=== PATIENT | male | born 1955 | race Caucasian/White ===

== ENCOUNTER 2018-05-25 16:33 | Emergency (ER) | payer OTHER ==
[2018-05-25] MEDS ORDERED: LORazepam 2 MG/ML INJ IVP ONE (17:02)
[2018-05-25 17:17] LABS: PLATELET COUNT 195 10^3/uL (150-400)
--- NOTE | 2018-05-25 17:18 | EDPHY ---
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 He took an [id number] supplement at 3:00 p.m.. Approximately 30 min later , he began to feel tremulous. Initially the tremors were generalized and now seem to be only in his lower extremities. No associated symptoms. No chest pain, shortness of breath, vomiting or headache. No prior similar symptoms. REVIEW OF SYSTEMS: complete 10 point ROS reviewed and is negative except for the noted elements in the HPI - Medical/Surgical History Hx Asthma: No Hx Chronic Respiratory Disease: No Hx Diabetes: No Hx Cardiac Disease: Yes Hx Renal Disease: No Hx Cirrhosis: No Hx Alcoholism: No Hx HIV/AIDS: No Hx Splenectomy or Spleen Trauma: No Other PMH: mi, hyperlipidemia, L eye surg, hernia repair x 2, orif R femur, orif L ankle - Social History Smoking Status: Former smoker Alcohol Use: Sober Drug Use: None Additional Social History: - Physical Exam Exam: General Appearance: Alert, pleasant Eyes: Pupils equal and round, no conjunctival pallor or injection ENT, Mouth: Mucous membranes moist Neck: Normal inspection Respiratory: Lungs are clear to auscultation Cardiovascular: Regular rate and rhythm Gastrointestinal: Abdomen is soft and nontender Neurological: A&O, motor 5/5, sensory intact to light touch, intermittent bilateral shaking of the lower extremities Skin: Warm and dry Extremities: Nontender, no pedal edema Psychiatric: Mood and affect normal Constitutional: Initial Vital Signs Temperature (C) 36.6 C 05/25/18 16:41 Heart Rate 90 05/25/18 16:41 Respiratory Rate 18 05/25/18 16:41 Blood Pressure 193/99 H 05/25/18 16:41 O2 Sat (%) 96 05/25/18 16:41 O2 Delivery Mode Room Air Allergies/Adverse Reactions: doxycycline Allergy (Verified 05/25/18 16:46) Home Medications: Medication Instructions Recorded Ambien 05/25/18 Atorvastatin Calcium 05/25/18 Cialis 05/25/18 Magnesium 05/25/18 Medical Decision Making - Diagnostics EKG Interpretation: EKG interpreted by me reveals normal sinus rhythm, rate 70, RBBB, LAFB, no ST or T segment changes. Interpretation: Abnormal EKG ED Course/Re-evaluation: This patient presents with tremulousness after taking an [id number] supplement. Ativan 0.5 mg IV x2 given with complete relief in symptoms. Will observe. 5:45 p.m.-feels much better, no tremors. Will continue to observe. 18 30: Remains asymptomatic, able to walk with a steady gait, will discharge home. Patient advised not to take over the counter supplements without his doctor's advice. Differential Diagnosis: Differential diagnosis includes though is not limited to seizure, hypoglycemia, electrolyte abnormality, muscular spasm. - Data Points Laboratory Results: Laboratory Results 05/25/18 17:08 05/25/18 17:08 Medications Given: Discontinued Medications Lorazepam (Ativan Injection) 1 mg IVP EDNOW ONE Stop: 05/25/18 17:03 Last Admin: 05/25/18 17:07 Dose: 1 mg Lorazepam (Ativan 1 Mg Prepack#4) 1 btl TAKEHOME EDNOW ONE Stop: 05/25/18 18:30 Last Admin: 05/25/18 18:38 Dose: 1 btl Departure - Departure Disposition: Home, Routine, Self-Care Clinical Impression: Adverse reaction to [id number] medication Qualifiers: Encounter type: initial encounter Qualified Code(s): T50.905A - Adverse effect of unspecified drugs, medicaments and biological substances, initial encounter Condition: Good Instructions: Additional Information, Lorazepam (By mouth) Additional Instructions: Ativan 1 tablet orally every 12 hr as needed for tremors. Referrals: Jaime Li MD [Medical Doctor] - As per Instructions
[2018-05-25] MEDS ORDERED: LORAZEPAM 1 MG PREPACK#4 BTL TAKEHOME ONE (18:29)
[2018-05-25 18:38] VITALS: BP 135/77
--- NOTE | 2018-05-25 19:02 | CPEKG ---
Test Reason : OPEN Blood Pressure : / mmHG Vent. Rate : 070 BPM Atrial Rate : 069 BPM P-R Int : 186 ms QRS Dur : 110 ms QT Int : 407 ms P-R-T Axes : 067 -46 052 degrees QTc Int : 440 ms NSR Incomplete RBBB and LAFB significant artifact Confirmed by Sol Carrillo ([id number]) on 05/25/2018 7:01:42 PM Referred By: Confirmed By:Sol Carrillo
== END 2018-05-25 18:53 | disposition home or self-care (01) ==
DX: R25.1 Tremor, unspecified (principal); T50.905A Adverse effect of unspecified drugs, medicaments and biological substances, initial encounter; I25.10 Atherosclerotic heart disease of native coronary artery without angina pectoris; E78.5 Hyperlipidemia, unspecified; Z87.891 Personal history of nicotine dependence
CPT/HCPCS: 96374; J2060